=== PATIENT | male | born 1955 | race Caucasian/White ===

== ENCOUNTER 2018-11-29 12:33 | Inpatient (IN) ==
[2018-11-29] MEDS ORDERED: SODIUM CHLORIDE 0.9% 500 ML IV SCH (12:45)
[2018-11-29 12:58] LABS: Basophils # (auto) 0.03 K/uL (0-0.2); Basophils % (auto) 0.4 %; Eosinophils # (auto) 0.14 K/uL (0-0.5); Eosinophils % (auto) 1.7 %; Hemoglobin 12.6 g/dL (14.0-18.0); Immature Granulocytes # (auto) 0.06 K/uL (0.00-0.02); Immature Granulocytes % (auto) 0.7 %; Lymphocytes # (auto) 1.22 K/uL (1.2-3.4); Lymphocytes % (auto) 14.6 %; Mean Corpuscular Hgb Conc 34.1 g/dL (32-36); Mean Corpuscular Volume 88.9 fL (80-100); Mean Platelet Volume 9.2 fL (7.4-10.4); Monocytes % (auto) 7.2 %; Neutrophils # (auto) 6.29 K/uL (1.4-6.5); Neutrophils % (auto) 75.4 %; Platelet Count 220 K/uL (130-400); RDW Coefficient of Variation 14.2 % (11.5-14.5); RDW Standard Deviation 46.3 fL (36.4-46.3); Red Blood Count 4.16 M/uL (4.7-6.1); White Blood Count 8.34 K/uL (4.8-10.8)
[2018-11-29 13:05] LABS: iSTAT Creatinine 1.8 mg/dl (0.6-1.3); iSTAT Hemoglobin 12.9 g/dl (14.0-18.0); iSTAT Ionized Calcium 1.1 mmol/l (1.12-1.32); iSTAT Potassium 4.6 mEq/L (3.3-5.0)
[2018-11-29 13:09] LABS: INR 2.1 (0.9-1.1); Partial Thromboplastin Ratio 1.3; Partial Thromboplastin Time 35.9 Seconds (21.0-31.0); Prothrombin Time 20.1 Seconds (9.0-12.0)
[2018-11-29 13:13] LABS: Alanine Aminotransferase 29 U/L (12-78); Aspartate Aminotransferase 14 U/L (15-37); BUN Creatinine Ratio 17.2 (10-20); Blood Urea Nitrogen 31 mg/dl (7-18); Carbon Dioxide 30 mmol/L (21-32); Chloride 106 mmol/L (98-107); Est GFR (African American) 45.7; Est GFR (Non-African American) 39.4; Glucose 198 mg/dl (70-99); Magnesium 2.4 mg/dl (1.8-2.4); Potassium 4.8 mmol/L (3.5-5.1); Sodium 141 mmol/L (136-145)
--- NOTE | 2018-11-29 13:18 | CT Scan Report ---
CT head/brain wo con CLINICAL HISTORY: Acute change in mental status COMPARISON STUDY: 10/15/2014 TECHNIQUE: Axial CT of the brain is performed from the vertex to the skull base. IV contrast was not administered for this examination. A dose lowering technique was utilized adhering to the principles of ALARA. CT DOSE: 614.27 mGy.cm FINDINGS: No intra or extra-axial mass lesions are visualized. There is no CT evidence of acute cortical infarc tion. There is no evidence of midline shift. There is no acute hemorrhage. No calvarial fractures ar e visualized. There are mild white matter hypodensities likely on a small vessel basis. There is no evidence of pathologic ventricular dilatation. There is no evidence of acute sinusitis. Vertebral artery calcifications are again evident. IMPRESSION: No acute intracranial findings Electronically signed by: Prosper Gomez M.D. 11/29/2018 1:17 PM
[2018-11-29 13:24] LABS: Alkaline Phosphatase 159 U/L (45-117); Bilirubin,Total 0.4 mg/dl (0.2-1); Globulin 3.9 gm/dl (2.5-4.0); Phosphorus 3.1 mg/dl (2.5-4.9); Total Protein 7.9 gm/dl (6.4-8.2); Troponin I < 0.015 ng/ml (0-0.045)
--- NOTE | 2018-11-29 13:28 | XRay Report ---
XR chest 1V portable CLINICAL HISTORY: weakness dyspnea COMPARISON STUDY: 10/15/2014 FINDINGS: Mild stable cardiomegaly. Permanent bipolar cardiac pacemaker. Lungs are clear. IMPRESSION: No acute process. The above report was generated using voice recognition software. It may contain grammatical, syntax or spelling errors. Electronically signed by: Brennen Hillman M.D. 11/29/2018 1:27 PM
[2018-11-29 14:56] LABS: Appearance Urine Clear (Clear); Bilirubin Urine Negative (Negative); Blood Urine Negative (Negative); Color Urine Yellow; Glucose Urine UA Negative (Negative); Ketones Urine Negative (Negative); Leukocyte Esterase Urine Negative (Negative); Nitrite Urine Negative (Negative); Protein Urine Negative (Negative); Urobilinogen Urine Negative (Negative)
[2018-11-29 16:09] LABS: Amphetamines+Metham, Urine Neg (Neg); Barbiturates, Urine Neg (Neg); Benzodiazepine, Urine Neg (Neg); Cocaine, Urine Neg (Neg); MDMA (Ecstacy), Urine Pos (Neg); Methadone, Urine Neg (Neg); Opiate, Urine Neg (Neg); Phencyclidine, Urine Neg (Neg)
--- NOTE | 2018-11-29 16:35 | Emergency Department Note ---
Entered by Zenobia Motley acting as a scribe for History of Present Illness General Chief complaint: Altered Mental Status Time Seen by Provider: 11/29/18 12:31 Source: patient and EMS History of Present Illness Onset (ago): minute(s) (prior to arrival) Location: head Pain Consistency: + other (episode) Maximum Pain Intensity: 7 Quality: + other (unresponsive) Associated symptoms: + denies other symptoms (tongue biting, incontinence), + weakness (left hand) and + other (right shoulder pain, possible left side facial droop, speaking in incomplete sentences); no cough and no fever/chills (fever) The patient is a 63 male w/ PMHx CKD, [place], PE, CAD, HTN, CHF, diabetes, RYGB, anemia, hyperlipidemia, anxiety, depression, GERD, and heart artery stent who presents to the ED w/ CC of an episode of unresponsiveness starting prior to arrival. Per EMS, they were called out for an altered mental status. They state that upon arrival he was unresponsive except for an aggressive sternal rub. They report that hey gave him 50 of Fentanyl. They reports that he was complaining about right shoulder pain from 2 falls this past week and had a possible left si ded facial droop with a weak banquet director on the left. They note that the facial droop and weakness have since resolved. They state that they then gave Narcan after calling for [facility]. EMS notes that his BSG was 131. They note that he was speaking in incomplete sentences. The patient denies cough, fever, being on dialysis, a history of seizures, tongue biting, and incontinence. Home Medications Home Medications Medication Instructions Recorded Confirmed Type atorvastatin 80 mg PO DAILY 11/29/18 11/29/18 History baclofen 10 mg PO DIRECTED PRN 11/29/18 11/29/18 History bupropion HCl 300 mg PO QAM 11/29/18 11/29/18 History buspirone 15 mg PO BID 11/29/18 11/29/18 History dicyclomine 20 mg PO Q6H PRN 11/29/18 11/29/18 History escitalopram oxalate 0 mg PO UNKNOWN 11/29/18 11/29/18 History escitalopram oxalate 10 mg PO QAM 11/29/18 11/29/18 History furosemide 40 mg PO DIRECTED 11/29/18 11/29/18 History gabapentin 300 mg PO Q12 11/29/18 11/29/18 History glipizide 0 mg PO UNKNOWN 11/29/18 11/29/18 History isosorbide mononitrate 30 mg PO DAILY 11/29/18 11/29/18 History meclizine 25 mg PO TID PRN 11/29/18 11/29/18 History omeprazole 20 mg PO BID 11/29/18 11/29/18 History ranitidine HCl 150 mg PO Q12 11/29/18 11/29/18 History trazodone 200 mg PO HS 11/29/18 11/29/18 History warfarin 5 mg PO DIRECTED 11/29/18 11/29/18 History zolpidem 5 mg PO HS 11/29/18 11/29/18 History Allergies Allergy/AdvReac Type Severity Reaction Status Date / Time Calcium Channel Blockers AdvReac Mild COUGH Uncoded 11/29/18 14:05 Past Med/Surg History Medical History CHF (congestive heart failure) (Acute) HTN (hypertension) (Acute) GERD (gastroesophageal reflux disease) (Acute) Bradycardia (Acute) Orthostatic syncope (Acute) Peripheral edema (Acute) Supratherapeutic INR (Acute) Symptomatic bradycardia (Acute) Anemia Ankle fracture, left (Acute) pins/screws CKD (chronic kidney disease) Myocardial infarct 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 Knee cartilage, torn, left (Acute) Anemia Anxiety CAD (coronary artery disease) 2014 stress test showed ischemia and Rx was medical management CHF (congestive heart failure) 2015 echo nl EF Depression Diabetes HTN (hypertension) Hyperlipidemia Obesity Pulmonary embolism Surgical History Hx of gastric bypass sepsis postop H/O removal of testicle (Acute) H/O heart artery stent X5 Hx of cardiac pacemaker Family History Other Cancer Diabetes Heart disease Hypertension Lung disease Social History Preferred Language: Angolan marital status: Current Living Situation: Alone current occupational status: disabled Feels Safe at Home: Yes Smoking Status: Never smoker Review of Systems See HPI for pertinent positives & negatives. and A total of 10 systems reviewed and were otherwise negative Physical Exam Vital Signs Vital Signs - 24 hr 11/29/18 12:39 11/29/18 12:40 11/29/18 12:43 Temperature 36.5 C Temperature Source Oral Sepsis Action Taken by Nursing No Action Required Pulse Rate 82 73 Pulse Rate from SpO2 Sensor 81 73 Respiratory Rate 12 Respiratory Effort / Characteristics Non-Labored Spontaneous Respiratory Depth Normal Blood Pressure 138/111 H Blood Pressure Mean 120 Pulse Oximetry 92 100 Oxygen Delivery Method Room Air Room Air 11/29/18 12:50 11/29/18 13:00 11/29/18 13:11 Temperature Temperature Source Sepsis Action Taken by Nursing Pulse Rate 65 61 62 Pulse Rate from SpO2 Sensor 64 Respiratory Rate 13 Respiratory Effort / Characteristics Respiratory Depth Blood Pressure 123/74 114/78 Blood Pressure Mean 90 90 Pulse Oximetry 100 Oxygen Delivery Method 11/29/18 13:30 11/29/18 14:00 Temperature Temperature Source Sepsis Action Taken by Nursing Pulse Rate 60 63 Pulse Rate from SpO2 Sensor 60 63 Respiratory Rate 18 15 Respiratory Effort / Characteristics Respiratory Depth Blood Pressure Blood Pressure Mean Pulse Oximetry 100 100 Oxygen Delivery Method GENERAL: Responds to voice, follows commands, smells of urine. EYE EXAM: Normal conjunctiva. PERRL, no anisocoria and EOM's grossly intact w/o pain. OROPHARYNX: Moist mucus membranes. Poor dentition. NECK: Supple, no nuchal rigidity, no adenopathy, non-tender. no signs of meningismus. LUNGS: Clear to auscultation. Normal chest wall mechanics. HEART: NSR, no MRG. ABDOMEN: Abdomen soft, non-tender, normo-active bowel sounds, no masses, no rebound or guarding. Multiple well healed scars over the abdomen. BACK: No CVA TTP. SKIN: No rashes and no bruising. UPPER EXTREMITIES: Upper extremities are grossly normal. LOWER EXTREMITIES: 1-2+ lower extremity edema. Signs of chronic venous stasis changes bilaterally. No calf pain. NEURO EXAM: A&O x3, cranial nerves II-XII grossly intact, normal speech, moves all 4 extremities on command w/o issue. No sensory deficits. Course 1235: The patient was evaluated in room A1. A complete history and physical exam was performed. 1325: I reevaluated the patient and updated him on his test results thus far. 1519: I discussed the patient's case with DANIEL Fox Hospitalist. She will evaluate the patient for further management. 1527: I reevaluated the patient and updated him on his test results. I discussed the treatment plan with him. He verbally agrees and understands. Consultations Consultation #1: I discussed the patient's case with DANIEL Fox Hospitalist. She will evaluate the patient for further management. Time: 15:19 Administered Medications Narcan .4 mg IV x 1 - ordered pre-hospital Medical Decision Making Differential Diagnosis Differential Diagnosis includes but is not limited to dehydration, stroke, anemia, hypoglycemia, hyponatremia, hypernatremia, urinary tract infection, pneumonia, bronchitis, sepsis, gastroenteritis, additional abdominal pathology, metabolic abnormalities and infections. Medical Records Attestation: I reviewed the patient's medical records. Home Medications Current Medication List: was personally reviewed by me Laboratory Data Attestation: I reviewed the patient's lab results. Result diagrams: 11/29/18 12:45 11/29/18 12:45 Lab Results 11/29/18 11/29/18 11/29/18 Range/Units 12:40 12:45 12:45 WBC 8.34 (4.8-10.8) K/uL RBC 4.16 L (4.7-6.1) M/uL Hgb 12.6 L (14.0-18.0) g/dL POC Hgb (14.0-18.0) g/dl Hct 37.0 L (42-52) % POC Hct (42-52) % MCV 88.9 (80-100) fL MCH 30.3 (25-34) pg MCHC 34.1 (32-36) g/dL RDW Std Deviation 46.3 (36.4-46.3) fL RDW Coeff of Mounika 14.2 (11.5-14.5) % Plt Count 220 (130-400) K/uL MPV 9.2 (7.4-10.4) fL Immature Gran % (Auto) 0.7 % Neut % (Auto) 75.4 % Lymph % (Auto) 14.6 % [place] % (Auto) 7.2 % Eos % (Auto) 1.7 % Baso % (Auto) 0.4 % Immature Gran # (Auto) 0.06 H (0.00-0.02) K/uL Neut # (Auto) 6.29 (1.4-6.5) K/uL Lymph # (Auto) 1.22 (1.2-3.4) K/uL [place] # (Auto) 0.60 H (0.11-0.59) K/uL Eos # (Auto) 0.14 (0-0.5) K/uL Baso # (Auto) 0.03 (0-0.2) K/uL PT (9.0-12.0) Seconds INR (0.9-1.1) APTT (21.0-31.0) Seconds PTT Ratio POC Sodium (135-144) mEq/L Sodium 141 (136-145) mmol/L POC Potassium (3.3-5.0) mEq/L Potassium 4.8 (3.5-5.1) mmol/L POC Chloride (101-112) mEq/L Chloride 106 (98-107) mmol/L Carbon Dioxide 30 (21-32) mmol/L POC Total CO2 (24-31) mEq/l Anion Gap 5.0 (3-11) POC Anion Gap (16-25) mmol/L POC BUN (7-18) mg/dl BUN 31 H (7-18) mg/dl Creatinine 1.78 H (0.6-1.4) mg/dl POC Creatinine (0.6-1.3) mg/dl Est Cr Clr Drug Dosing Not Reportable Est GFR ( Amer) 45.7 Est GFR (Non-Af Amer) 39.4 BUN/Creatinine Ratio 17.2 (10-20) Glucose 198 H (70-99) mg/dl POC Glucose 183 H (70-99) POC Glucose (other) (70-99) mg/dl Lactate (0.4-2.0) mmol/L Calcium 9.0 (8.5-10.1) mg/dl POC Ioniz Calcium Heath (1.12-1.32) mmol/l Phosphorus 3.1 (2.5-4.9) mg/dl Magnesium 2.4 (1.8-2.4) mg/dl Total Bilirubin 0.4 (0.2-1) mg/dl AST 14 L (15-37) U/L ALT 29 (12-78) U/L Alkaline Phosphatase 159 H (45-117) U/L Troponin I < 0.015 (0-0.045) ng/ml Total Protein 7.9 (6.4-8.2) gm/dl Albumin 4.0 (3.4-5.0) gm/dl Globulin 3.9 (2.5-4.0) gm/dl Albumin/Globulin Ratio 1.0 (0.9-2) TSH 1.870 (0.300-4.500) uIu/ml Urine Color Urine Appearance (Clear) Urine pH (4.5-7.5) Ur Specific Center (1.000-1.030) Urine Protein (Negative) Urine Glucose (UA) (Negative) Urine Ketones (Negative) Urine Blood (Negative) Urine Nitrite (Negative) Urine Bilirubin (Negative) Urine Urobilinogen (Negative) Ur Leukocyte Esterase (Negative) Urine Opiates Screen (Neg) Ur Methadone, Qual (Neg) Urine Barbiturates (Neg) Ur Phencyclidine (PCP) (Neg) U Amphetamin/Meth Scrn (Neg) MDMA (Ecstasy) Screen (Neg) U Benzodiazepines Scrn (Neg) Ur Cocaine Metabolite (Neg) U Marijuana (THC) Screen (Neg) 11/29/18 11/29/18 11/29/18 Range/Units 12:45 12:52 13:30 WBC (4.8-10.8) K/uL RBC (4.7-6.1) M/uL Hgb (14.0-18.0) g/dL POC Hgb 12.9 L (14.0-18.0) g/dl Hct (42-52) % POC Hct 38 L (42-52) % MCV (80-100) fL MCH (25-34) pg MCHC (32-36) g/dL RDW Std Deviation (36.4-46.3) fL RDW Coeff of Mounika (11.5-14.5) % Plt Count (130-400) K/uL MPV (7.4-10.4) fL Immature Gran % (Auto) % Neut % (Auto) % Lymph % (Auto) % [place] % (Auto) % Eos % (Auto) % Baso % (Auto) % Immature Gran # (Auto) (0.00-0.02) K/uL Neut # (Auto) (1.4-6.5) K/uL Lymph # (Auto) (1.2-3.4) K/uL [place] # (Auto) (0.11-0.59) K/uL Eos # (Auto) (0-0.5) K/uL Baso # (Auto) (0-0.2) K/uL PT 20.1 H (9.0-12.0) Seconds INR 2.1 H (0.9-1.1) APTT 35.9 H (21.0-31.0) Seconds PTT Ratio 1.3 POC Sodium 143 (135-144) mEq/L Sodium (136-145) mmol/L POC Potassium 4.6 (3.3-5.0) mEq/L Potassium (3.5-5.1) mmol/L POC Chloride 100 L (101-112) mEq/L Chloride (98-107) mmol/L Carbon Dioxide (21-32) mmol/L POC Total CO2 32 H (24-31) mEq/l Anion Gap (3-11) POC Anion Gap 16.0 (16-25) mmol/L POC BUN 32 H (7-18) mg/dl BUN (7-18) mg/dl Creatinine (0.6-1.4) mg/dl POC Creatinine 1.8 H (0.6-1.3) mg/dl Est Cr Clr Drug Dosing Est GFR ( Amer) Est GFR (Non-Af Amer) BUN/Creatinine Ratio (10-20) Glucose (70-99) mg/dl POC Glucose (70-99) POC Glucose (other) 200 H (70-99) mg/dl Lactate 1.7 (0.4-2.0) mmol/L Calcium (8.5-10.1) mg/dl POC Ioniz Calcium Heath 1.10 L (1.12-1.32) mmol/l Phosphorus (2.5-4.9) mg/dl Magnesium (1.8-2.4) mg/dl Total Bilirubin (0.2-1) mg/dl AST (15-37) U/L ALT (12-78) U/L Alkaline Phosphatase (45-117) U/L Troponin I (0-0.045) ng/ml Total Protein (6.4-8.2) gm/dl Albumin (3.4-5.0) gm/dl Globulin (2.5-4.0) gm/dl Albumin/Globulin Ratio (0.9-2) TSH (0.300-4.500) uIu/ml Urine Color Urine Appearance (Clear) Urine pH (4.5-7.5) Ur Specific Center (1.000-1.030) Urine Protein (Negative) Urine Glucose (UA) (Negative) Urine Ketones (Negative) Urine Blood (Negative) Urine Nitrite (Negative) Urine Bilirubin (Negative) Urine Urobilinogen (Negative) Ur Leukocyte Esterase (Negative) Urine Opiates Screen (Neg) Ur Methadone, Qual (Neg) Urine Barbiturates (Neg) Ur Phencyclidine (PCP) (Neg) U Amphetamin/Meth Scrn (Neg) MDMA (Ecstasy) Screen (Neg) U Benzodiazepines Scrn (Neg) Ur Cocaine Metabolite (Neg) U Marijuana (THC) Screen (Neg) 11/29/18 11/29/18 Range/Units 14:35 14:35 WBC (4.8-10.8) K/uL RBC (4.7-6.1) M/uL Hgb (14.0-18.0) g/dL POC Hgb (14.0-18.0) g/dl Hct (42-52) % POC Hct (42-52) % MCV (80-100) fL MCH (25-34) pg MCHC (32-36) g/dL RDW Std Deviation (36.4-46.3) fL RDW Coeff of Mounika (11.5-14.5) % Plt Count (130-400) K/uL MPV (7.4-10.4) fL Immature Gran % (Auto) % Neut % (Auto) % Lymph % (Auto) % [place] % (Auto) % Eos % (Auto) % Baso % (Auto) % Immature Gran # (Auto) (0.00-0.02) K/uL Neut # (Auto) (1.4-6.5) K/uL Lymph # (Auto) (1.2-3.4) K/uL [place] # (Auto) (0.11-0.59) K/uL Eos # (Auto) (0-0.5) K/uL Baso # (Auto) (0-0.2) K/uL PT (9.0-12.0) Seconds INR (0.9-1.1) APTT (21.0-31.0) Seconds PTT Ratio POC Sodium (135-144) mEq/L Sodium (136-145) mmol/L POC Potassium (3.3-5.0) mEq/L Potassium (3.5-5.1) mmol/L POC Chloride (101-112) mEq/L Chloride (98-107) mmol/L Carbon Dioxide (21-32) mmol/L POC Total CO2 (24-31) mEq/l Anion Gap (3-11) POC Anion Gap (16-25) mmol/L POC BUN (7-18) mg/dl BUN (7-18) mg/dl Creatinine (0.6-1.4) mg/dl POC Creatinine (0.6-1.3) mg/dl Est Cr Clr Drug Dosing Est GFR ( Amer) Est GFR (Non-Af Amer) BUN/Creatinine Ratio (10-20) Glucose (70-99) mg/dl POC Glucose (70-99) POC Glucose (other) (70-99) mg/dl Lactate (0.4-2.0) mmol/L Calcium (8.5-10.1) mg/dl POC Ioniz Calcium Heath (1.12-1.32) mmol/l Phosphorus (2.5-4.9) mg/dl Magnesium (1.8-2.4) mg/dl Total Bilirubin (0.2-1) mg/dl AST (15-37) U/L ALT (12-78) U/L Alkaline Phosphatase (45-117) U/L Troponin I (0-0.045) ng/ml Total Protein (6.4-8.2) gm/dl Albumin (3.4-5.0) gm/dl Globulin (2.5-4.0) gm/dl Albumin/Globulin Ratio (0.9-2) TSH (0.300-4.500) uIu/ml Urine Color Yellow Urine Appearance Clear (Clear) Urine pH 5.0 (4.5-7.5) Ur Specific Center 1.010 (1.000-1.030) Urine Protein Negative (Negative) Urine Glucose (UA) Negative (Negative) Urine Ketones Negative (Negative) Urine Blood Negative (Negative) Urine Nitrite Negative (Negative) Urine Bilirubin Negative (Negative) Urine Urobilinogen Negative (Negative) Ur Leukocyte Esterase Negative (Negative) Urine Opiates Screen Neg (Neg) Ur Methadone, Qual Neg (Neg) Urine Barbiturates Neg (Neg) Ur Phencyclidine (PCP) Neg (Neg) U Amphetamin/Meth Scrn Neg (Neg) MDMA (Ecstasy) Screen Pos H (Neg) U Benzodiazepines Scrn Neg (Neg) Ur Cocaine Metabolite Neg (Neg) U Marijuana (THC) Screen Neg (Neg) Imaging Data Radiologist's Impression: Radiology results as stated below per my review and the radiologist's interpretation: XR chest 1V portable CLINICAL HISTORY: weakness dyspnea COMPARISON STUDY: 10/15/2014 FINDINGS: Mild stable cardiomegaly. Permanent bipolar cardiac pacemaker. Lungs are clear. IMPRESSION: No acute process. The above report was generated using voice recognition software. It may contain grammatical, syntax or spelling errors. Electronically signed by: Brennen Hillman M.D. 11/29/2018 1:[address] head/brain wo con CLINICAL HISTORY: Acute change in mental status COMPARISON STUDY: 10/15/2014 TECHNIQUE: Axial CT of the brain is performed from the vertex to the skull base. IV contrast was not administered for this examination. A dose lowering technique was utilized adhering to the principles of ALARA. CT DOSE: 614.27 mGy.cm FINDINGS: No intra or extra-axial mass lesions are visualized. There is no CT evidence of acute cortical infarction. There is no evidence of midline shift. There is no acute hemorrhage. No calvarial fractures are visualized. There are mild white matter hypodensities likely on a small vessel basis. There is no evidence of pathologic ventricular dilatation. There is no evidence of acute sinusitis. Vertebral artery calcifications are again evident. IMPRESSION: No acute intracranial findings Electronically signed by: Prosper Gomez M.D. 11/29/2018 1:17 PM ECG Data Attestation: I personally reviewed and interpreted this ECG as follows: Indication: altered mental status Rate (beats per minute): 67 Rhythm: other (atrially paced) Findings: + other (wide QRS), + T-wave inversion (inferiroly) and + left axis deviation Comparison ECG Date: from () Change: the following changes noted (pacemaker is new and TWI inferiorly is old) Blood Pressure Blood Pressure Findings: Normal blood pressure Blood Pressure Disposition: did not require urgent referral MDM Narrative The patient is a 63 male w/ PMHx CKD, [place], PE, CAD, HTN, CHF, diabetes, RYGB, anemia, hyperlipidemia, anxiety, depression, GERD, and heart artery stent who presents to the ED w/ CC of an episode of unresponsiveness starting prior to arrival. Patient was seen and evaluated the bedside. The patient reportedly was coming in with concern for questionable unresponsiveness. The patient was complaining some right-sided shoulder pain apparent was only awake to sternal rub. EMS had given the patient fentanyl so I ordered that they give the patient Narcan. Upon presentation here the patient has stable vitals is protecting his airway has a GCS of 14 opens his eyes to voice and follows commands. No obvious focal deficit. The patient did have blood work completed along with CT of the brain. Patient's blood work shows some CKD which is fairly chronic and stable. White blood cell count is within normal limits. Patient does have some chronic but stable anemia. Patient is therapeutic on his INR given his prior history of PE for which she is on Coumadin. Troponin is not detectable. TSH is normal. Urinalysis negative for infection. Given the patient's episode of unrespo nsiveness and given his multiple medical problems believe he would benefit from observation telemetry. Impression & Plan Alteration of consciousness Critical Care Time I have personally spent greater than 40 minutes of critical care time in direct management of this patient. This includes bedside care, interpretation of diagnostic studies, and testing, discussion with consultants, patient, and f amily members, and other require inpatient management activities. This 40 minutes is in excess of all separately billable procedures. Critical Care Time: Yes Total Critical Care Time: 40 Discharge Plan Visit Data Chief Complaint: Altered Mental Status ED Provider: Munir Duarte Discharge Problem: Alteration of consciousness Patient Disposition: Being Evaluated by Hospitalist Forms Stand Alone Forms: My [facility] [email or web address] Prescriptions Prescriptions: No Action furosemide 40 mg tablet 40 mg PO DIRECTED RF: 0 trazodone 100 mg tablet 200 mg PO HS RF: 0 dicyclomine 20 mg tablet 20 mg PO Q6H PRN (Reason: Cramps) RF: 0 meclizine 25 mg tablet 25 mg PO TID PRN (Reason: Dizziness) RF: 0 baclofen 10 mg tablet 10 mg PO DIRECTED PRN (Reason: Pain) RF: 0 glipizide 2.5 mg tablet extended release 24hr PO UNKNOWN RF: 0 ranitidine HCl 150 mg tablet 150 mg PO Q12 RF: 0 warfarin 5 mg tablet 5 mg PO DIRECTED RF: 0 gabapentin 300 mg capsule 300 mg PO Q12 RF: 0 omeprazole 20 mg capsule,delayed release(DR/EC) 20 mg PO BID RF: 0 zolpidem 5 mg tablet 5 mg PO HS RF: 0 buspirone 15 mg tablet 15 mg PO BID RF: 0 escitalopram oxalate 10 mg tablet 10 mg PO QAM RF: 0 bupropion HCl 300 mg tablet extended release 24 hr 300 mg PO QAM RF: 0 escitalopram oxalate 5 mg tablet PO UNKNOWN RF: 0 atorvastatin 80 mg Tablet 80 mg PO DAILY RF: 0 isosorbide mononitrate 30 mg Tablet Extended Release 24 Hr 30 mg PO DAILY RF: 0 Referrals Referrals: Barron Nguyen V., DO [Primary Care Provider] - The scribe's documentation has been prepared under my direction and personally reviewed by me in its entirety. I confirm that the note above accurately reflects all work, treatment, procedures, and medical decision making performed by me.
--- NOTE | 2018-11-29 17:54 | History & Physical Report ---
Date of Service November 29, 2018 Assessment & Plan (1) Altered mental status: -Admit to telemetry -EMS was called to patient's home for lethargy/altered mental status. When EMS arrived, patient was lethargic however arousable and was complaining of shoulder pain. He was subsequently given IV fentanyl for the pain. There was also reported possible left sided facial droop with a weak lye machine operator on the left. EMS noted that the facial droop and weakness resolved. Patient was given Narcan after EMS called for [facility]. -History remains limited from the patient -Differential diagnosis includes: Polypharmacy vs. CVA vs. seizure -No signs of infection -For now, will hold all potentially sedating medications (baclofen, bupropion, buspirone, escitalopram, gabapentin, oxycodone, trazodone, zolpidem); noted that baclofen was recently started -Head CT negative -Unable to obtain brain MRI to evaluate for CVA -Neurochecks -Neuro consult for input regarding further work-up for CVA /seizure (2) Neck pain: -Check cervical spine x-ray (3) DM type 2 (diabetes mellitus, type 2): -Hgb A1c 7.1 10/2018 -Unable to obtain accurate med rec from patient at this time -Discussed with patient's pharmacy, he has not had his glipizide filled in over 1 year -will place on NovoLog per protocol while hospitalized (4) CKD (chronic kidney disease), stage IV: - baseline creat runs in the low twos - creat noted to be 1.7 today - continue to monitor, avoid nephrotoxic agents when able - Noted the patient recently had RUE fistula placed (5) CAD (coronary artery disease): -Appears stable, patient does report chest pain however this seems to be musculoskeletal in nature -Initial troponin negative, will continue to cycle -EKG unchanged from EKG 02/2018 -Continue aspirin, statin, nitrate (6) Sinus node dysfunction: (7) Pacemaker: -Pacer interrogation to evaluate for arrhythmia due to episode of altered mental status (8) Personal history of DVT (deep vein thrombosis): (9) Pulmonary embolism: -Anticoagulated on Coumadin, INR 2.1 -Continue Coumadin, dose according to INR (10) Hypertension: -BP controlled, continue isosorbide (11) Diastolic CHF, chronic: -Appears euvolemic, continue home dose of furosemide (12) GERD (gastroesophageal reflux disease): -Continue H2 evelyn and PPI (13) Depression: -Holding medications as above (14) Anemia due to chronic kidney disease: -Hgb at baseline (15) DVT prophylaxis: -Anticoagulated on Coumadin with a therapeutic INR History of Present Illness Chief Complaint: Altered mental status Primary Care Provider: Barron Nguyen DO 63-year-old male who presents the ED with altered mental status. History is very limited from the patient, there is no family present in the room, and family/friends were unable to be reached by phone. History is obtained from ED documentation and patient's outpatient chart. EMS was called to patient's home for lethargy/altered mental status. Patient reports he lives with his son however he is unsure if he was the one that called EMS. When EMS arrived, patient was lethargic however arousable and was complaining of shoulder pain. He was subsequently given IV fentanyl for the pain. There was also reported possible left sided facial droop with a weak lye machine operator on the left. They note that the facial droop and weakness have since resolved. Patient was given Narcan after calling for [employer]. After review of outpatient chart, patient was recently given baclofen for right shoulder pain. It is unknown if patient has been taking medication as prescribed. When patient was asked questions during exam, he frequently responded with " my neck hurts", "my shoulder hurts", " I just do not feel well", " I do not remember". In the ED, CT is negative for acute findings, patient is hemodynamically stable, labs are unremarkable. Allergies Allergy/AdvReac Type Severity Reaction Status Date / Time Calcium Channel Blockers AdvReac Mild COUGH Uncoded 11/29/18 14:05 Home Medications Home Medications Medication Instructions Recorded Confirmed Type aspirin 81 mg PO DAILY 11/29/18 11/29/18 History atorvastatin 80 mg PO DAILY 11/29/18 11/29/18 History baclofen 10 mg PO Q8H PRN 11/29/18 11/29/18 History bupropion HCl 300 mg PO QAM 11/29/18 11/29/18 History buspirone 15 mg PO BID 11/29/18 11/29/18 History dicyclomine 20 mg PO Q6H PRN 11/29/18 11/29/18 History escitalopram oxalate 10 mg PO QAM 11/29/18 11/29/18 History furosemide 80 mg PO QDD 11/29/18 11/29/18 History furosemide 120 mg PO DAILY 11/29/18 11/29/18 History gabapentin 300 mg PO Q12 11/29/18 11/29/18 History glipizide 2.5 mg PO DAILY 11/29/18 11/29/18 History iron,carbonyl-vitamin C [Vitron-C] 1 tab PO BID 11/29/18 11/29/18 History isosorbide mononitrate 30 mg PO DAILY 11/29/18 11/29/18 History magnesium oxide 400 mg PO BID 11/29/18 11/29/18 History meclizine 25 mg PO TID PRN 11/29/18 11/29/18 History omeprazole 20 mg PO BID 11/29/18 11/29/18 History oxycodone 10 mg PO Q6H PRN 11/29/18 11/29/18 History ranitidine HCl 150 mg PO Q12 11/29/18 11/29/18 History trazodone 200 mg PO HS 11/29/18 11/29/18 History warfarin 5 mg PO DAILY 11/29/18 11/29/18 History zolpidem 5 mg PO HS 11/29/18 11/29/18 History Past Med/Surg History Medical History Anemia due to chronic kidney disease (Chronic) Chronic anticoagulation (Chronic) Depression (Chronic) Pacemaker (Chronic) Marilou's gangrene of scrotum (Resolved) GERD (gastroesophageal reflux disease) (Chronic) Diastolic CHF, chronic (Chronic) Echo 2017 -EF 57%, grade 2 diastolic dysfunction Hypertension (Chronic) Pulmonary embolism (Chronic) Personal history of DVT (deep vein thrombosis) (Chronic) Pacemaker (Chronic) NSVT (nonsustained ventricular tachycardia) (Chronic) Sinus node dysfunction (Chronic) CAD (coronary artery disease) (Chronic) 08/2009-BMS to RCA, BMS to diagonal, balloon angioplasty to obtuse circumflex 2014-cardiac cath showing nonobstructive disease, mild in-stent restenosis RCA -medical management advised CKD (chronic kidney disease), stage IV (Chronic) DM type 2 (diabetes mellitus, type 2) (Chronic) Ankle fracture, left (Chronic) pins/screws Surgical History H/O umbilical hernia repair (Chronic) History of incisional hernia repair (Chronic) x4 Hx of cholecystectomy (Chronic) History of orchiectomy (Chronic) S/P IVC filter (Chronic) Hx of gastric bypass (Chronic) Family History Mother Diabetes Sister Heart disease Social History Preferred Language: Dominican Communication Ability: Impaired Communication Ability Comment: Patient slow to respond to questions. 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 Beliefs That Will Affect Care: None marital status: Current Living Situation: Alone current occupational status: disabled Feels Safe at Home: No Is there a partner from a previous relationship who is making you feel unsafe now?: No Any Concerns about Your Family Situation: No Would You Like to Speak to Someone About Your Situation: No Smoking Status: Never smoker Do You Dip or Chew Tobacco: No Second Hand Exposure: No Tobacco Cessation Education Requested by Patient: No Hx Alcohol Use: Yes ("now and then") Alcohol type: hard liquor Hx Substance Use: No Review of Systems Review of Systems: Unobtainable due to cognitive status Physical Exam Constitutional: WD/WN, vitals as above Eyes: PERRL, conjunctivae normal, anicteric sclerae ENMT: external ear and nose normal, oropharynx normal Mouth: + edentulous Respiratory: normal respiratory effort, lungs clear to auscultation Cardiovascular: Rate/Rhythm: regular rate and regular rhythm Vessels: n ormal peripheral pulses Extremities: + edema (+1-2 BLE, L > R) Gastrointestinal (Abdomen): normal bowel sounds, soft, nontender, no hepatosplenomegaly Musculoskeletal: Extremities: + upper extremity abnormal to inspection (Unable to lift arms secondary to shoulder pain) Bilateral and + lower leg abnormality (Weakness, strength 3-4/5 BLLE) Bilateral; no cyanosis and no clubbing Skin: no rashes, warm and dry Chronic venous changes BLE Neurologic: PERRL, EOMI, accommodation nl, no face palsy, no dysarthria moves all extremities, awake and + confused Speech / Cognition: normal speech Does not follow commands well to adequately perform a neuro exam Psychiatric: Orientation: alert, oriented to person and oriented to place; + not oriented to time Affect: + tearful affect Insight: + limited insight Results & Data Vital Signs (Past 12 Hours) Vital Signs Temp Pulse Pulse Resp BP BP Pulse Ox 11/29/18 17:16 21 132/73 97 11/29/18 17:10 37.0 C 62 20 132/73 98 11/29/18 17:01 22 144/85 H 99 11/29/18 17:00 22 100 11/29/18 16:31 66 17 141/76 H 100 11/29/18 16:30 69 12 98 11/29/18 16:01 63 22 152/84 H 11/29/18 16:00 64 21 11/29/18 15:31 63 14 134/71 100 11/29/18 15:30 61 16 100 11/29/18 15:01 60 15 144/77 H 100 11/29/18 15:00 60 13 100 11/29/18 14:31 60 14 146/73 H 100 11/29/18 14:30 61 14 100 11/29/18 14:19 61 13 146/87 H 100 11/29/18 14:00 63 15 100 11/29/18 13:30 60 18 100 11/29/18 13:11 62 13 114/78 11/29/18 13:00 61 11/29/18 12:50 65 123/74 100 11/29/18 12:40 36.5 C 73 12 138/111 H 100 11/29/18 12:39 82 92 Laboratory Results Laboratory Last Values WBC 8.34 K/uL (4.8-10.8) 11/29/18 12:45 RBC 4.16 M/uL (4.7-6.1) L 11/29/18 12:45 Hgb 12.6 g/dL (14.0-18.0) L 11/29/18 12:45 POC Hgb 12.9 g/dl (14.0-18.0) L 11/29/18 12:52 Hct 37.0 % (42-52) L 11/29/18 12:45 POC Hct 38 % (42-52) L 11/29/18 12:52 MCV 88.9 fL (80-100) 11/29/18 12:45 MCH 30.3 pg (25-34) 11/29/18 12:45 MCHC 34.1 g/dL (32-36) 11/29/18 12:45 RDW Std Deviation 46.3 fL (36.4-46.3) 11/29/18 12:45 RDW Coeff of Mounika 14.2 % (11.5-14.5) 11/29/18 12:45 Plt Count 220 K/uL (130-400) 11/29/18 12:45 MPV 9.2 fL (7.4-10.4) 11/29/18 12:45 Immature Gran % (Auto) 0.7 % 11/29/18 12:45 Neut % (Auto) 75.4 % 11/29/18 12:45 Lymph % (Auto) 14.6 % 11/29/18 12:45 George % (Auto) 7.2 % 11/29/18 12:45 Eos % (Auto) 1.7 % 11/29/18 12:45 Baso % (Auto) 0.4 % 11/29/18 12:45 Immature Gran # (Auto) 0.06 K/uL (0.00-0.02) H 11/29/18 12:45 Neut # (Auto) 6.29 K/uL (1.4-6.5) 11/29/18 12:45 Lymph # (Auto) 1.22 K/uL (1.2-3.4) 11/29/18 12:45 George # (Auto) 0.60 K/uL (0.11-0.59) H 11/29/18 12:45 Eos # (Auto) 0.14 K/uL (0-0.5) 11/29/18 12:45 Baso # (Auto) 0.03 K/uL (0-0.2) 11/29/18 12:45 PT 20.1 Seconds (9.0-12.0) H 11/29/18 12:45 INR 2.1 (0.9-1.1) H 11/29/18 12:45 APTT 35.9 Seconds (21.0-31.0) H 11/29/18 12:45 PTT Ratio 1.3 11/29/18 12:45 POC Sodium 143 mEq/L (135-144) 11/29/18 12:52 Sodium 141 mmol/L (136-145) 11/29/18 12:45 POC Potassium 4.6 mEq/L (3.3-5.0) 11/29/18 12:52 Potassium 4.8 mmol/L (3.5-5.1) 11/29/18 12:45 POC Chloride 100 mEq/L (101-112) L 11/29/18 12:52 Chloride 106 mmol/L (98-107) 11/29/18 12:45 Carbon Dioxide 30 mmol/L (21-32) 11/29/18 12:45 POC Total CO2 32 mEq/l (24-31) H 11/29/18 12:52 Anion Gap 5.0 (3-11) 11/29/18 12:45 POC Anion Gap 16.0 mmol/L (16-25) 11/29/18 12:52 POC BUN 32 mg/dl (7-18) H 11/29/18 12:52 BUN 31 mg/dl (7-18) H 11/29/18 12:45 Creatinine 1.78 mg/dl (0.6-1.4) H 11/29/18 12:45 POC Creatinine 1.8 mg/dl (0.6-1.3) H 11/29/18 12:52 Est Cr Clr Drug Dosing Not Reportable 11/29/18 12:45 Est GFR ( Amer) 45.7 11/29/18 12:45 Est GFR (Non-Af Amer) 39.4 11/29/18 12:45 BUN/Creatinine Ratio 17.2 (10-20) 11/29/18 12:45 Glucose 198 mg/dl (70-99) H 11/29/18 12:45 POC Glucose 183 (70-99) H 11/29/18 12:40 POC Glucose (other) 200 mg/dl (70-99) H 11/29/18 12:52 Lactate 1.7 mmol/L (0.4-2.0) 11/29/18 13:30 Calcium 9.0 mg/dl (8.5-10.1) 11/29/18 12:45 POC Ioniz Calcium [place] 1.10 mmol/l (1.12-1.32) L 11/29/18 12:52 Phosphorus 3.1 mg/dl (2.5-4.9) 11/29/18 12:45 Magnesium 2.4 mg/dl (1.8-2.4) 11/29/18 12:45 Total Bilirubin 0.4 mg/dl (0.2-1) 11/29/18 12:45 AST 14 U/L (15-37) L 11/29/18 12:45 ALT 29 U/L (12-78) 11/29/18 12:45 Alkaline Phosphatase 159 U/L (45-117) H 11/29/18 12:45 Troponin I < 0.015 ng/ml (0-0.045) 11/29/18 18:44 Total Protein 7.9 gm/dl (6.4-8.2) 11/29/18 12:45 Albumin 4.0 gm/dl (3.4-5.0) 11/29/18 12:45 Globulin 3.9 gm/dl (2.5-4.0) 11/29/18 12:45 Albumin/Globulin Ratio 1.0 (0.9-2) 11/29/18 12:45 TSH 1.870 uIu/ml (0.300-4.500) 11/29/18 12:45 Urine Color Yellow 11/29/18 14:35 Urine Appearance Clear (Clear) 11/29/18 14:35 Urine pH 5.0 (4.5-7.5) 11/29/18 14:35 Ur Specific [place] 1.010 (1.000-1.030) 11/29/18 14:35 Urine Protein Negative (Negative) 11/29/18 14:35 Urine Glucose (UA) Negative (Negative) 11/29/18 14:35 Urine Ketones Negative (Negative) 11/29/18 14:35 Urine Blood Negative (Negative) 11/29/18 14:35 Urine Nitrite Negative (Negative) 11/29/18 14:35 Urine Bilirubin Negative (Negative) 11/29/18 14:35 Urine Urobilinogen Negative (Negative) 11/29/18 14:35 Ur Leukocyte Esterase Negative (Negative) 11/29/18 14:35 Urine Opiates Screen Neg (Neg) 11/29/18 14:35 Ur Methadone, Qual Neg (Neg) 11/29/18 14:35 Urine Barbiturates Neg (Neg) 11/29/18 14:35 Ur Phencyclidine (PCP) Neg (Neg) 11/29/18 14:35 U Amphetamin/Meth Scrn Neg (Neg) 11/29/18 14:35 MDMA (Ecstasy) Screen Pos (Neg) H 11/29/18 14:35 U Benzodiazepines Scrn Neg (Neg) 11/29/18 14:35 Ur Cocaine Metabolite Neg (Neg) 11/29/18 14:35 U Marijuana (THC) Screen Neg (Neg) 11/29/18 14:[address] IMPRESSION: No acute intracranial findings CXR IMPRESSION: No acute process. Code Status & VTE Plan Code Status Unable to discuss with patient secondary to mental status, unable to reach patient's son by phone; therefore patient will be made a full code. VTE Prophylaxis Plan VTE Prophylaxis will be ordered: Yes Supervising Physician Co-Signing Physician Notes I have seen and examined the patient and have discussed the case with the provider above. I agree with the assessment and plan as stated with the following exceptions. Mr. Giron is a very poor historian who keeps changing his story. He most likely took two oxycodone in addition to Baclofen which is a new medication as of a couple of weeks ago last night and became altered. He also takes Ambien 5mg every night and other meds as above. The patient reports his son trying to wake him up without success this am, and the patient states he could feel him but couldn't speak to communicate with him. He then came to the ER via EMS and is now A&Ox 3. He interstingly was fine the entire exam and started having some "shaking" in his arms and legs. There was also no issue with his breathing or speaking ability, however, when I went to auscultate his lungs, he was only able to take a stacatto breath in and out and seemed to try to be making things seem somewhat worse than they were. He told me that he was unhappy with just taking plain Tylenol, and states that his outpatient physicians cut him off of oxycodone. PDMP review shows that he just filled 120 pills on 11/12. Pt states that he is out of these meds. Suspect polypharmacy causing AMS this am. Will restart his oxycodone now to help with shoulder pain present since his fall two weeks ago. Physical exam revealed a nonfocal neuro exam, lungs that were clear to auscultation with limited exam per above breathing pattern, normal heart exam and no peripheral edema. Cont plan of holding meds as above, restart oxy, and continue to add meds back slowly. Would stop Baclofen as that was the recent change that might have caused a reaction. Appreciate neuro input. PT/OT flavio in am. Pt reports ambulating with a walker, however, he is unable to sit up in bed unassisted. Lon, DO
[2018-11-29] MEDS: ACETAMINOPHEN 325 MG TAB PO PRN (18:54)
[2018-11-29] MEDS ORDERED: DEXTROSE 50% 50 ML SYRINGE IV PRN (20:23)
[2018-11-29] MEDS ORDERED: GLUCOSE 40% GEL 15 GM TUBE PO PRN (20:23)
[2018-11-29] MEDS ORDERED: GLUCAGON FOR INJ 1 MG VIAL SQ PRN (20:23)
[2018-11-29] MEDS ORDERED: CARBOHYDRATES FOR HYPOGLYCEMIA PO PRN (20:23)
[2018-11-29] MEDS ORDERED: GLUCOSE 10 TABS/TUBE PO PRN (20:23)
[2018-11-29] MEDS: MAGNESIUM OXIDE 400 MG TAB PO SCH (20:47)
[2018-11-29] MEDS: PANTOprazole 40 MG TAB PO SCH (20:48)
[2018-11-29] MEDS: INSULIN ASPART 100 UNITS/ML 3 ML PEN SC SCH (20:49)
--- NOTE | 2018-11-29 20:50 | XRay Report ---
CERVICAL SPINE 3 VIEWS CLINICAL HISTORY: Cervicalgia. FINDINGS: AP, lateral, and odontoid views of the cervical spine are obtained. No prior studies are av ailable for comparison at the time of dictation. The skeletal structures are osteopenic. There is no radiographic evidence of fracture or subluxation. The odontoid process and lateral masses appear inta ct on the open mouth view. The spinolaminar line is preserved. Vertebral body height and alignment ar e maintained. The C7 vertebral body is incompletely visualized. Small anterior osteophytes are seen t hroughout. The spinous processes appear intact. Productive degenerative change is noted the atlantode ntal articulation. Multilevel facet arthropathy is noted on the AP view. The intervertebral disc spac es are normal. The prevertebral soft tissues are within normal limits. Visualized apical lung parench yma appears clear. Pacemaker leads are seen in the right axilla. IMPRESSION: 1. No acute bony abnormality is seen involving the cervical spine noting suboptimal visualization of C7. 2. Osteopenia and mild spondylotic change as above. Electronically signed by: Vega Costello M.D. 11/29/2018 8:49 PM
[2018-11-29] MEDS ORDERED: NON-FORMULARY MEDICATION (Iron,Carbonyl-Vitamin C [Vitron-C] 1 TAB) PO SCH (21:00)
[2018-11-30] MEDS: OXYCODONE HCL IR 5 MG TAB (IMMEDIATE RELEASE) PO PRN ×4 (05:31→23:39)
[2018-11-30 06:46] LABS: Hematocrit (blood only) 39.2 % (42-52); Hemoglobin 12.8 g/dL (14.0-18.0); Mean Corpuscular Hgb Conc 32.7 g/dL (32-36); Mean Corpuscular Volume 89.9 fL (80-100); Mean Platelet Volume 9.6 fL (7.4-10.4); Platelet Count 227 K/uL (130-400); RDW Coefficient of Variation 14.3 % (11.5-14.5); RDW Standard Deviation 47.5 fL (36.4-46.3); Red Blood Count 4.36 M/uL (4.7-6.1); White Blood Count 6.59 K/uL (4.8-10.8)
[2018-11-30 06:57] LABS: INR 2.1 (0.9-1.1); Prothrombin Time 20.4 Seconds (9.0-12.0)
[2018-11-30 07:21] LABS: BUN Creatinine Ratio 16.9 (10-20); Calcium 8.9 mg/dl (8.5-10.1); Creatinine Clr Calc Pharmacy 51.5 ml/min; Est GFR (African American) 44.5; Est GFR (Non-African American) 38.4; Potassium 4.6 mmol/L (3.5-5.1)
[2018-11-30] MEDS: ASPIRIN 81 MG ECTAB PO SCH (07:57)
[2018-11-30] MEDS: ISOSORBIDE MONO EXTENDED REL 30 MG TABCR PO SCH (07:57)
[2018-11-30] MEDS: PANTOprazole 40 MG TAB PO SCH ×2 (07:58→20:16)
[2018-11-30] MEDS: MAGNESIUM OXIDE 400 MG TAB PO SCH ×2 (07:58→20:17)
[2018-11-30] MEDS: ATORVASTATIN 40 MG TAB PO SCH (07:58)
[2018-11-30] MEDS: FUROSEMIDE 80 MG TAB PO SCH (07:59)
[2018-11-30] MEDS: INSULIN ASPART 100 UNITS/ML 3 ML PEN SC SCH ×4 (08:04→20:18)
--- NOTE | 2018-11-30 10:50 | Hospitalist Progress Note ---
Date of Service November 30, 2018 Assessment & Plan (1) Altered mental status: -EMS was called to patient's home for lethargy/altered mental status. When EMS arrived, patient was lethargic however arousable and was complaining of shoulder pain. He was subsequently given IV fentanyl for the pain. There was also reported possible left sided facial droop with a weak semiconductor assembler on the left. EMS noted that the facial droop and weakness resolved. Patient was given Narcan after EMS called for [facility]. -History remains limited from the patient -For now, will hold all potentially sedating medications (baclofen, bupropion, buspirone, escitalopram, gabapentin, oxycodone, trazodone, zolpidem); noted that baclofen was recently started -Head CT negative -Unable to obtain brain MRI to evaluate for CVA -Neurochecks -Neuro on case, saw PT c Dr Lyman today (2) Neck pain: -Check cervical spine x-ray (3) DM type 2 (diabetes mellitus, type 2): -Hgb A1c 7.1 10/2018 -Discussed with patient's pharmacy, he has not had his glipizide filled in over 1 year -SSI (4) CKD (chronic kidney disease), stage IV: - baseline creat runs in the low 2s - continue to monitor, avoid nephrotoxic agents when able (5) CAD (coronary artery disease): -Appears stable, patient does report chest pain however this seems to be musculoskeletal in nature -Troponin negative -EKG unchanged from EKG 02/2018 -Continue aspirin, statin, nitrate (6) Sinus node dysfunction: Tele (7) Pacemaker: -Pacer interrogation to evaluate for arrhythmia due to episode of altered mental status (8) Personal history of DVT (deep vein thrombosis): Therapeutic on Warfarin (9) Pulmonary embolism: -Anticoagulated on Coumadin, INR 2.1 -Continue Coumadin, dose according to INR (10) Hypertension: -BP controlled, continue isosorbide (11) Diastolic CHF, chronic: -Appears euvolemic, continue home dose of furosemide (12) GERD (gastroesophageal reflux disease): -Continue H2 evelyn and PPI (13) Depression: -Holding medications as above, resume Lexapro (14) Anemia due to chronic kidney disease: -Hgb at baseline (15) Right groin wound: Wound eval and treat (16) DVT prophylaxis: -Anticoagulated on Coumadin with a therapeutic INR ROS-No Headache, No Visual Changes, No Nausea, No Vomiting, No Fever, No Chills, No Neck Pain or Stiffness, No Chest Pain, No Palpitations, No SOB, No MONTALVO, No Cough, No Sputum, No Wheezing, No Abdominal Pain, No Diarrhea, No Hematemesis, No Hemoptysis, No Unexpected Weight Loss, No Flank pain, No Melena, No Hematochezia, No Frequency, No Urgency, No Burning, No Hematuria, No Rashes, No Diaphoresis. Appetite is Normal, c/o Back pain and R Shoulder Pain Physical Exam Gen-AAO x 3, NAD, Afebrile Head-NCAT, EOMI, PERRLA, Anicteric Sclera, No Posterior Pharyngeal Erythema Neck-Supple, No JVD, No Thyromegaly, No Masses, No LAD, No Bruits Lungs-Clear to Auscultation Bilaterally, No Rales, No Rhonchi, No Wheezing, No Crepitus Chest-No S4, +S1, +S2, No S3, No Murmurs, No Rubs, No Gallops, No Ectopy Abdomen-Soft, Bowel Sounds Present, Non Tender, Non Distended, No Hepatomegaly, No Splenomegaly, No Palpable Masses, No Rebound, No Rigidity, No Guarding Musculoskeletal-Full Range of Motion Bilaterally, No CVAT Extremities-No Cyanosis, No Clubbing, No Edema, R Groin seeping wound Nuero-Cranial Nerves II-XII grossly intact, Motor WNL, DTRs WNL, Strength WNL, Non Focal Psych-Normal Mood Results & Data Vital Signs (Past 12 Hours) Vital Signs Temp Pulse Resp BP Pulse Ox 11/30/18 07:35 37.2 C 61 19 146/88 H 97 11/30/18 03:48 36.3 C L 60 18 131/84 96 11/29/18 23:59 36.3 C L 60 16 145/87 H 95 Current Diagnoses Anemia in chronic kidney disease (11/29/18) Type 2 diabetes mellitus without complications (11/29/18) Major depressive disorder, single episode, unspecified (11/29/18) Essential (primary) hypertension (11/29/18) Atherosclerotic heart disease of [place] coronary artery without angina pectoris (11/29/18) Other pulmonary embolism without acute cor pulmonale (11/29/18) Sick sinus syndrome (11/29/18) Chronic diastolic (congestive) heart failure (11/29/18) Gastro-esophageal reflux disease without esophagitis (11/29/18) Cervicalgia (11/29/18) Chronic kidney disease, stage 4 (severe) (11/29/18) Chronic kidney disease, unspecified (11/29/18) Altered mental status, unspecified (11/29/18) Personal history of other venous thrombosis and embolism (11/29/18) Presence of cardiac pacemaker (11/29/18) Allergies Calcium Channel Blockers Adverse Reaction (Mild, Uncoded 11/29/18 14:05) COUGH Height/Weight/Isolation Height 5 ft 7 in Weight 122.9 kg Chemistry 11/29/18 11/30/18 12:45 06:20 Sodium 141 142 Potassium 4.8 4.6 Chloride 106 105 Carbon Dioxide 30 35 H Anion Gap 5.0 3.0 BUN 31 H 31 H Creatinine 1.78 H 1.82 H Glucose 198 H 169 H Urinalysis 11/29/18 14:35 Urine Color Yellow Urine Appearance Clear Urine pH 5.0 Ur Specific [place] 1.010 Urine Protein Negative Urine Glucose (UA) Negative Urine Ketones Negative Urine Blood Negative Urine Nitrite Negative Urine Bilirubin Negative
--- NOTE | 2018-11-30 11:18 | Consultation Report ---
DATE OF CONSULTATION: 11/30/2018 REASON FOR CONSULTATION: Confusional episode. HISTORY OF PRESENT ILLNESS: The patient is a 63-year-old with multiple medical comorbidities including diabetes, kidney disease, coronary artery disease, sinus node dysfunction with permanent pacemaker and chronic anticoagulation. On this background, he has been in his general state of health. About a week ago, he fell and he developed some right shoulder, neck and back pain. He was seen at the [facility]. He indicates that they did not give him any narcotic pain medications, but it is possible that they prescribed baclofen and gabapentin. The baclofen is clearly new, unclear if gabapentin is new. The patient chronically takes oxycodone, and in the month of October, he indicates that he goes through 110 per month which is to last him 30 days. He in the month of October ran out of his oxycodone, so has not been taking that. I do not know of what period of time he consumed 110 oxycodone. On this background, the patient lives with his son and indicates that he was otherwise as described. He said he went out on his front porch and felt somewhat delirious. He was nauseated, vomited, leaned on the railing, could not find his dog, called for his son. His son encouraged him to go back to the bedroom. The patient indicates he fell onto the bed and briefly lost consciousness. While on the bed, he was awake, but could not speak or move for a period of time. He may have had a mild headache. He had some neck pain. He was not injured. When the watchmaker apprentice arrived, they gave him narcotic pain medication for shoulder pain and then given Narcan. It was also noted that he had a facial droop on the left and weak driving instructor on the left. These have resolved. The patient has no prior history of transient ischemic attack or stroke. PAST MEDICAL HISTORY: As above. Additionally, depression, Marilou's gangrene of the scrotum, reflux, congestive heart failure, nonsustained ventricular tachycardia, coronary artery disease with multiple procedures, diabetes, ankle fracture. SURGICAL HISTORY: Umbilical hernia, incisional hernia, cholecystectomy, orchiectomy, IVC filter, gastric bypass. FAMILY HISTORY: Diabetes, heart disease. SOCIAL HISTORY: The patient is disabled, does not smoke, occasionally drinks alcohol. REVIEW OF SYSTEMS: No fevers, chills, sweats. MEDICATIONS: Aspirin, atorvastatin, baclofen, bupropion, BuSpar, dicyclomine, Celexa, furosemide, gabapentin 300 q. 12, glipizide, iron, isosorbide, magnesium, meclizine, oxycodone, omeprazole, ranitidine, trazodone, warfarin, and zolpidem. LABORATORY DATA: White count 8.3, H and H 12.9/37, platelet count 220. INR 2.1. Sodium 141, potassium 4.6, BUN/creatinine 31/1.78. Glucose point of care 183, calcium 9.0. Transaminases normal. Urinalysis negative. Tox screen positive for MDMA. CT of the head, no acute intracranial findings. Chest x-ray, no acute process. PHYSICAL EXAMINATION: CURRENT VITAL SIGNS: 146/88, 61, 19, 37.2, 97% sat. GENERAL: The patient is oriented to person and place. He thinks that it is October. No right/left confusion. No aphasia. No carotid bruits. HEART: No heart murmurs. Heart is regular rate and rhythm. NEUROLOGIC: There are normal extraocular motility pearson. There is a mild flattening of the left nasolabial fold. Speech is nondysarthric, although he is edentulous. There is symmetric strength, no drift. Equal rapid alternating movements. Symmetric reflexes. Diminished lower extremity reflexes. The distal sensory loss to temperature. [id number]-pd-[id number] and gsck-pn-[id number] are normal. His gait was not tested. IMPRESSION: This is a patient with multiple medical comorbidities who has had a recent fall with pain and multiple new medications. The differential of this episode of change in mental status includes polypharmacy, possible medication withdrawal. Transient neurologic symptoms were witnessed raising the question of a transient ischemic attack, although in orders for the patient to lose consciousness, this would have to have been a posterior circulation event and his symptoms are not consistent with the same. Seizure is within the differential, I do not know if he was observed during this entire period of time. The patient cannot have MRI, CTA or MRA. PLAN: 1. Carotid ultrasound, echo, risk factor modification 2. EEG. 3. Consider simplifying the patient's medications including considering discontinuing the trazodone or zolpidem. Hold gabapentin, if indeed it is a new medication for this patient. We will follow with you. ANGEL
--- NOTE | 2018-11-30 11:36 | CT Scan Report ---
CT OF THE CERVICAL SPINE WITHOUT CONTRAST CLINICAL HISTORY: fall, intractable neck pain COMPARISON STUDY: Cervical spine radiographs November 29, 2018. TECHNIQUE: Helical axial images of the cervical spine were obtained without IV contrast. Sagittal a nd coronal reconstructions were viewed. Automated exposure control was utilized for the study. A do se lowering technique was utilized adhering to the principles of ALARA. FINDINGS: Alignment of the cervical spine is anatomic. Vertebral body heights are maintained. Cranioc ervical junction is intact. Facet joints are intact. There is moderate multilevel facet arthrosis and moderate multilevel degenerative disc disease. Suspected central disc protrusions at C3-C4 and C5-C6 are noted. Central canal and neural foramen are suboptimally assessed by CT however there are suspec abilio moderate central canal stenosis at C3-C4. There is no prevertebral edema. There is no pneumothora x within visualized portions of the lung apices. IMPRESSION: 1. No acute cervical spinal fracture or subluxation. 2. Moderate multilevel degenerative disc disease and facet arthrosis within the cervical spine. Subop timal evaluation of the central canal and neural foramen given CT technique however suspected disc pr otrusions at C3-C4 and C5-C6 with at least moderate central canal stenosis at C3-C4. Electronically signed by: Aftab Sheets M.D. 11/30/2018 11:34 AM
--- NOTE | 2018-11-30 13:23 | Ultrasound Report ---
CAROTID ARTERY ULTRASOUND CLINICAL HISTORY: tia, l facial droop COMPARISON STUDY: Carotid ultrasound April 06, 2012. TECHNIQUE: Real-time, grayscale, and color Doppler sonography of the carotid and vertebral arteries w as performed. Images were viewed in the transverse and longitudinal planes. FINDINGS: There is mild atherosclerotic plaque present. Velocity measurements are listed below. COMMON CAROTID PEAK SYSTOLIC VELOCITY (CM/S): RIGHT 70 LEFT 77 ICA PEAK SYSTOLIC VELOCITY (CM/S): RIGHT 49 LEFT 54 Systolic ratios between the internal to common carotid arteries are normal. Antegrade flow is seen in the vertebral arteries. The external carotid arteries are patent. IMPRESSION: No evidence of a hemodynamically significant stenosis. Electronically signed by: Aftab Sheets M.D. 11/30/2018 1:22 PM
[2018-11-30] MEDS ORDERED: PERFLUTREN LIPID MICROSPHERE (DEFINITY) IV ONE (15:04)
[2018-11-30] MEDS ORDERED: WARFARIN SOD 5 MG TAB PO SCH (16:00)
[2018-11-30] MEDS ORDERED: FUROSEMIDE 80 MG TAB PO SCH (16:30)
[2018-11-30] MEDS: ACETAMINOPHEN 325 MG TAB PO PRN (23:39)
[2018-12-01] MEDS: OXYCODONE HCL IR 5 MG TAB (IMMEDIATE RELEASE) PO PRN ×2 (06:45→10:56)
[2018-12-01 07:48] LABS: Hematocrit (blood only) 38.5 % (42-52); Hemoglobin 13.1 g/dL (14.0-18.0); Mean Corpuscular Volume 88.9 fL (80-100); Mean Platelet Volume 9.3 fL (7.4-10.4); Platelet Count 219 K/uL (130-400); RDW Standard Deviation 45.7 fL (36.4-46.3); Red Blood Count 4.33 M/uL (4.7-6.1); White Blood Count 7.51 K/uL (4.8-10.8)
[2018-12-01 07:57] LABS: INR 1.5 (0.9-1.1); Prothrombin Time 14.8 Seconds (9.0-12.0)
[2018-12-01] MEDS: ATORVASTATIN 40 MG TAB PO SCH (08:13)
[2018-12-01] MEDS: MAGNESIUM OXIDE 400 MG TAB PO SCH (08:13)
[2018-12-01] MEDS: PANTOprazole 40 MG TAB PO SCH (08:14)
[2018-12-01] MEDS: ASPIRIN 81 MG ECTAB PO SCH (08:14)
[2018-12-01] MEDS: ISOSORBIDE MONO EXTENDED REL 30 MG TABCR PO SCH (08:14)
[2018-12-01] MEDS: INSULIN ASPART 100 UNITS/ML 3 ML PEN SC SCH ×2 (08:17→11:55)
[2018-12-01] MEDS: FUROSEMIDE 80 MG TAB PO SCH (08:18)
[2018-12-01 08:21] LABS: BUN Creatinine Ratio 17.3 (10-20); Calcium 8.8 mg/dl (8.5-10.1); Creatinine Clr Calc Pharmacy 45.8 ml/min; Est GFR (African American) 38.8; Est GFR (Non-African American) 33.4; Potassium 4.7 mmol/L (3.5-5.1)
--- NOTE | 2018-12-01 11:38 | Discharge Summary ---
Date of Service December 01, 2018 Admission HPI Per Admitting Provider 63-year-old male who presents the ED with altered mental status. History is very limited from the patient, there is no family present in the room, and family/friends were unable to be reached by phone. History is obtained from ED documentation and patient's outpatient chart. EMS was called to patient's home for lethargy/altered mental status. Patient reports he lives with his son however he is unsure if he was the one that called EMS. When EMS arrived, patient was lethargic however arousable and was complaining of shoulder pain. He was subsequently given IV fentanyl for the pain. There was also reported possible left sided facial droop with a weak pyrotechnician on the left. They note that the facial droop and weakness have since resolved. Patient was given Narcan after calling for [facility]. After review of outpatient chart, patient was recently given baclofen for right shoulder pain. It is unknown if patient has been taking medication as prescribed. When patient was asked questions during exam, he frequently responded with " my neck hurts", "my shoulder hurts", " I just do not feel well", " I do not remember". In the ED, CT is negative for acute findings, patient is hemodynamically stable, labs are unremarkable. Admission Exam Per Admitting Provider Constitutional WD/WN, vitals as above Eyes: PERRL, conjunctivae normal, anicteric sclerae ENMT: external ear and nose normal, oropharynx normal Mouth: + edentulous Respiratory: normal respiratory effort, lungs clear to auscultation Cardiovascular: Rate/Rhythm: regular rate and regular rhythm Vessels: normal peripheral pulses Extremities: + edema (+1-2 BLE, L > R) Gastrointestinal (Abdomen): normal bowel sounds, soft, nontender, no hepatosplenomegaly Musculoskeletal: Extremities: + upper extremity abnormal to inspection (Unable to lift arms secondary to shoulder pain) Bilateral and + lower leg abnormality (Weakness, strength 3-4/5 BLLE) Bilateral; no cyanosis and no clubbing Skin: no rashes, warm and dry Chronic venous changes BLE Neurologic: PERRL, EOMI, accommodation nl, no face palsy, no dysarthria moves all extremities, awake and + confused Speech / Cognition: normal speech Does not follow commands well to adequately perform a neuro exam Psychiatric: Orientation: alert, oriented to person and oriented to place; + not oriented to time Affect: + tearful affect Insight: + limited insight Principal Diagnosis AMS Polypharmacy Right Groin Wound Back and Neck Pain ACD DM II CKD CAD Discharge Exam ROS-No Headache, No Visual Changes, No Nausea, No Vomiting, No Fever, No Chills, No Neck Pain or Stiffness, No Chest Pain, No Palpitations, No SOB, No MONTALVO, No Cough, No Sputum, No Wheezing, No Abdominal Pain, No Diarrhea, No Hematemesis, No Hemoptysis, No Unexpected Weight Loss, No Flank pain, No Melena, No Hematochezia, No Frequency, No Urgency, No Burning, No Hematuria, No Rashes, No Diaphoresis. Appetite is Normal, c/o Back pain and R Shoulder Pain Physical Exam Gen-AAO x 3, NAD, Afebrile Head-NCAT, EOMI, PERRLA, Anicteric Sclera, No Posterior Pharyngeal Erythema Neck-Supple, No JVD, No Thyromegaly, No Masses, No LAD, No Bruits Lungs-Clear to Auscultation Bilaterally, No Rales, No Rhonchi, No Wheezing, No Crepitus Chest-No S4, +S1, +S2, No S3, No Murmurs, No Rubs, No Gallops, No Ectopy Abdomen-Soft, Bowel Sounds Present, Non Tender, Non Distended, No Hepatomegaly, No Splenomegaly, No Palpable Masses, No Rebound, No Rigidity, No Guarding Musculoskeletal-Full Range of Motion Bilaterally, No CVAT Extremities-No Cyanosis, No Clubbing, No Edema, R Groin seeping wound Nuero-Cranial Nerves II-XII grossly intact, Motor WNL, DTRs WNL, Strength WNL, Non Focal Psych-Normal Mood Discharge Data Allergies Allergy/AdvReac Type Severity Reaction Status Date / Time Calcium Channel Blockers AdvReac Mild COUGH Uncoded 11/29/18 14:05 Consultations 11/29/18 15:23 ED Decision to Admit Stat 11/29/18 18:36 Consult Case Management - Discharge Planning Routine Consult Neurology Routine Ordered Studies 11/29/18 12:40 CT head/brain wo con Stat 11/30/18 10:30 US carotid doppler BI Routine 11/30/18 10:35 CT cervical spine wo con Routine Current Diagnoses Anemia in chronic kidney disease (11/29/18) Type 2 diabetes mellitus without complications (11/29/18) Major depressive disorder, single episode, unspecified (11/29/18) Essential (primary) hypertension (11/29/18) Atherosclerotic heart disease of [place] coronary artery without angina pectoris (11/29/18) Other pulmonary embolism without acute cor pulmonale (11/29/18) Sick sinus syndrome (11/29/18) Chronic diastolic (congestive) heart failure (11/29/18) Gastro-esophageal reflux disease without esophagitis (11/29/18) Cervicalgia (11/29/18) Chronic kidney disease, stage 4 (severe) (11/29/18) Chronic kidney disease, unspecified (11/29/18) Altered mental status, unspecified (11/29/18) Unspecified open wound of abdominal wall, unspecified quadrant without penetration into peritoneal cavity, initial encounter (11/29/18) Personal history of other venous thrombosis and embolism (11/29/18) Presence of cardiac pacemaker (11/29/18) Allergies Calcium Channel Blockers Adverse Reaction (Mild, Uncoded 11/29/18 14:05) COUGH Height/Weight/Isolation Height 5 ft 7 in Weight 122.2 kg Chemistry 11/29/18 11/30/18 12/01/18 12:45 06:20 07:35 Sodium 141 142 138 Potassium 4.8 4.6 4.7 Chloride 106 105 100 Carbon Dioxide 30 35 H 34 H Anion Gap 5.0 3.0 4.0 BUN 31 H 31 H 35 H Creatinine 1.78 H 1.82 H 2.04 H Glucose 198 H 169 H 156 H Urinalysis 11/29/18 14:35 Urine Color Yellow Urine Appearance Clear Urine pH 5.0 Ur Specific [place] 1.010 Urine Protein Negative Urine Glucose (UA) Negative Urine Ketones Negative Urine Blood Negative Urine Nitrite Negative Urine Bilirubin Negative Hospital Course (1) Altered mental status: -EMS was called to patient's home for lethargy/altered mental status. When EMS arrived, patient was lethargic however arousable and was complaining of shoulder pain. He was subsequently given IV fentanyl for the pain. There was also reported possible left sided facial droop with a weak pyrotechnician on the left. EMS noted that the facial droop and weakness resolved. Patient was given Narcan after EMS called for [facility]. -Feeling a lot better, will stop Neurontin and Baclofen, Refuses to stop Combo of Trazadone and Ambien for sleep -Head CT negative -Unable to obtain brain MRI to evaluate for CVA -Neuro saw patient (2) Neck pain: -Chronic (3) DM type 2 (diabetes mellitus, type 2): -Hgb A1c 7.1 10/2018 -Discussed with patient's pharmacy, he has not had his glipizide filled in over 1 year (4) CKD (chronic kidney disease), stage IV: (5) CAD (coronary artery disease): -Appears stable, patient does report chest pain however this seems to be musculoskeletal in nature -Troponin negative -EKG unchanged from EKG 02/2018 -Continue aspirin, statin, nitrate (6) Sinus node dysfunction: Tele (7) Pacemaker: -OK on Monitor (8) Personal history of DVT (deep vein thrombosis): Therapeutic on Warfarin (9) Pulmonary embolism: -Anticoagulated on Coumadin, INR 2.1 -Continue Coumadin, dose according to INR (10) Hypertension: -BP controlled, continue isosorbide (11) Diastolic CHF, chronic: -Appears euvolemic, continue home dose of furosemide (12) GERD (gastroesophageal reflux disease): -Continue H2 evelyn and PPI (13) Depression: -Holding medications as above, resume Lexapro (14) Anemia due to chronic kidney disease: -Hgb at baseline (15) Right groin wound: Wound eval and treat (16) DVT prophylaxis: -Anticoagulated on Coumadin with a therapeutic INR ROS-No Headache, No Visual Changes, No Nausea, No Vomiting, No Fever, No Chills, No Neck Pain or Stiffness, No Chest Pain, No Palpitations, No SOB, No MONTALVO, No Cough, No Sputum, No Wheezing, No Abdominal Pain, No Diarrhea, No Hematemesis, No Hemoptysis, No Unexpected Weight Loss, No Flank pain, No Melena, No Hematochezia, No Frequency, No Urgency, No Burning, No Hematuria, No Rashes, No Diaphoresis. Appetite is Normal, c/o Back pain and R Shoulder Pain Physical Exam Gen-AAO x 3, NAD, Afebrile Head-NCAT, EOMI, PERRLA, Anicteric Sclera, No Posterior Pharyngeal Erythema Neck-Supple, No JVD, No Thyromegaly, No Masses, No LAD, No Bruits Lungs-Clear to Auscultation Bilaterally, No Rales, No Rhonchi, No Wheezing, No Crepitus Chest-No S4, +S1, +S2, No S3, No Murmurs, No Rubs, No Gallops, No Ectopy Abdomen-Soft, Bowel Sounds Present, Non Tender, Non Distended, No Hepatomegaly, No Splenomegaly, No Palpable Masses, No Rebound, No Rigidity, No Guarding Musculoskeletal-Full Range of Motion Bilaterally, No CVAT Extremities-No Cyanosis, No Clubbing, No Edema, R Groin seeping wound Nuero-Cranial Nerves II-XII grossly intact, Motor WNL, DTRs WNL, Strength WNL, Non Focal Psych-Normal Mood Total Time Total Time Spent Total Time Spent (In Minutes): 45 mins Total Time Includes: Examination of the Patient, Discharge Planning, Medication Reconciliation and Communication With Other Providers Discharge Plan Discharge Items Patient Disposition: Home - Self-Care Reason For Visit: ALTERED MENTAL STATUS Discharge Diagnosis: AMS Polypharmacy Right Groin Wound Back and Neck Pain ACD DM II CKD CAD Condition: Good Discharge Goals: Decrease discomfort and Improve disease control Activity: Resume your previous activity Lifting: Gradually increase as tolerated Bathing: No limitations Sexual Activity: When tolerated Exercise/Sports: Gradually increase as tolerated Driving/Machine Use: No limitations Driving/Machine Use Comment: Caution driving while taking your meds Weightbearing: Left weightbearing and Right weightbearing Non-emergency contact: Primary Care Provider Call non-emergency contact if: you have any medication questions and your symptoms worsen Follow-up/Referrals: Barron Nguyen DO [Primary Care Provider] - Diet: Carb Consistent or DM2 and Heart Healthy Addtl Provider Instructions: He has R groin wound that needs watching Prescriptions: New acetaminophen [Mapap (acetaminophen)] 325 mg Tablet 650 mg PO Q4H PRN (Reason: fever or pain) Qty: 60 RF: 0 Continued furosemide 40 mg tablet 120 mg PO DAILY RF: 0 trazodone 100 mg tablet 200 mg PO HS RF: 0 meclizine 25 mg tablet 25 mg PO TID PRN (Reason: Dizziness) RF: 0 glipizide 2.5 mg tablet extended release 24hr 2.5 mg PO DAILY RF: 0 ranitidine HCl 150 mg tablet 150 mg PO Q12 RF: 0 warfarin 5 mg tablet 5 mg PO DAILY RF: 0 omeprazole 20 mg capsule,delayed release(DR/EC) 20 mg PO BID RF: 0 zolpidem 5 mg tablet 5 mg PO HS RF: 0 buspirone 15 mg tablet 15 mg PO BID RF: 0 escitalopram oxalate 10 mg tablet 10 mg PO QAM RF: 0 bupropion HCl 300 mg tablet extended release 24 hr 300 mg PO QAM RF: 0 atorvastatin 80 mg Tablet 80 mg PO DAILY RF: 0 isosorbide mononitrate 30 mg Tablet Extended Release 24 Hr 30 mg PO DAILY RF: 0 furosemide 40 mg tablet 80 mg PO QDD RF: 0 aspirin 81 mg Tablet,Delayed Release (Dr/Ec) 81 mg PO DAILY RF: 0 magnesium oxide 400 mg (241.3 mg magnesium) Tablet 400 mg PO BID RF: 0 oxycodone 10 mg tablet 10 mg PO Q6H PRN (Reason: Pain) RF: 0 Vitron-C 65 mg iron- 125 mg Tablet,Delayed Release (Dr/Ec) 1 tab PO BID RF: 0 Discontinued dicyclomine 20 mg tablet 20 mg PO Q6H PRN (Reason: Cramps) RF: 0 baclofen 10 mg tablet 10 mg PO Q8H PRN (Reason: Pain) RF: 0 gabapentin 300 mg capsule 300 mg PO Q12 RF: 0 Stand-Alone Forms: [facility], Opioid Pain Management Discharge Orders: Discharge Order (Routine); Ordered 12/01/18 Ordered By: Tolu Correa Admission Data Admit Date/Time: 11/29/18 16:06 Attending Provider: Tolu Correa Admit Provider: Traci Forrest Primary Care Provider: Barron Nguyen V. Other Providers: Traci Forrest ; Lesly Olson Service: Telemetry
--- NOTE | 2018-12-01 14:25 | Progress Note ---
DATE: 12/01/2018 I am seeing Mr. Giron in followup of some confusion. I spoke to his son on the phone. Apparently, the confusion came on gradually over the night and was not a sudden onset of episode. No seizure activity had been noted. His CT of the head was noncontributory. His echo was limited due to body habitus, but appears unremarkable. A carotid duplex was negative and CT of the cervical spine showed degenerative changes but no fracture. IMPRESSION: 1. Confusion, likely related to polypharmacy. We will sign off. 2. Cervicogenic degenerative disc disease. The patient should follow up with primary care. We will attempt to minimize polypharmacy.
--- NOTE | 2018-12-01 15:10 | Procedure Note ---
EEG Procedure Note Date of Service December 01, 2018 Start / End Times Start Time: 15:22 End Time: 15:[address] Lesly Olson History A 63 year old man admitted for encephalopathy. EEG performed for evaluation of epileptiform activity. Home Medication List Home Medications Medication Instructions Recorded Confirmed Type Vitron-C 1 tab PO BID 11/29/18 11/29/18 History aspirin 81 mg PO DAILY 11/29/18 11/29/18 History atorvastatin 80 mg PO DAILY 11/29/18 11/29/18 History bupropion HCl 300 mg PO QAM 11/29/18 11/29/18 History buspirone 15 mg PO BID 11/29/18 11/29/18 History escitalopram oxalate 10 mg PO QAM 11/29/18 11/29/18 History furosemide 80 mg PO QDD 11/29/18 11/29/18 History furosemide 120 mg PO DAILY 11/29/18 11/29/18 History glipizide 2.5 mg PO DAILY 11/29/18 11/29/18 History isosorbide mononitrate 30 mg PO DAILY 11/29/18 11/29/18 History magnesium oxide 400 mg PO BID 11/29/18 11/29/18 History meclizine 25 mg PO TID PRN 11/29/18 11/29/18 History omeprazole 20 mg PO BID 11/29/18 11/29/18 History oxycodone 10 mg PO Q6H PRN 11/29/18 11/29/18 History ranitidine HCl 150 mg PO Q12 11/29/18 11/29/18 History trazodone 200 mg PO HS 11/29/18 11/29/18 History warfarin 5 mg PO DAILY 11/29/18 11/29/18 History zolpidem 5 mg PO HS 11/29/18 11/29/18 History acetaminophen [Mapap 650 mg PO Q4H PRN #60 tab 12/01/18 Rx (acetaminophen)] Inpatient Medication List Acetaminophen (Tylenol) 650 mg PO Q4H PRN PRN Reason: Pain or Fever Stop: 12/29/18 18:35 Last Admin: 11/30/18 23:39 Dose: 650 mg Documented by: [id number] Admin: 11/29/18 18:54 Dose: 650 mg Documented by: [id number] Aspirin (Ecotrin Ectab) 81 mg PO DAILY [facility] Stop: 12/30/18 08:59 Last Admin: 12/01/18 08:14 Dose: 81 mg Documented by: [id number] Admin: 11/30/18 07:57 Dose: 81 mg Documented by: [id number] Atorvastatin Calcium (Lipitor) 80 mg PO DAILY [facility] Stop: 12/30/18 08:59 Last Admin: 12/01/18 08:13 Dose: 80 mg Documented by: [id number] Admin: 11/30/18 07:58 Dose: 80 mg Documented by: [id number] Furosemide (Lasix) 80 mg PO QDD [facility] Stop: 12/30/18 16:29 Last Admin: 11/30/18 17:28 Dose: 80 mg Documented by: [id number] Furosemide (Lasix) 120 mg PO DAILY [facility] Stop: 12/30/18 08:59 Last Admin: 12/01/18 08:18 Dose: 120 mg Documented by: [id number] Admin: 11/30/18 07:59 Dose: 120 mg Documented by: [id number] Insulin Aspart (Novolog Flexpen) 0 units SC ACHS [facility] Stop: 12/29/18 20:59 Last Admin: 12/01/18 11:55 Dose: 6 units Documented by: [id number] Cosigned by: [id number] Admin: 12/01/18 08:17 Dose: 3 units Documented by: [id number] Cosigned by: [id number] Admin: 11/30/18 20:18 Dose: 2 units Documented by: [id number] Cosigned by: [id number] Admin: 11/30/18 17:31 Dose: 3 units Documented by: [id number] Cosigned by: [id number] Admin: 11/30/18 12:32 Dose: 2 units Documented by: [id number] Cosigned by: [id number] Admin: 11/30/18 08:04 Dose: 5 units Documented by: [id number] Cosigned by: [id number] Admin: 11/29/18 20:49 Dose: Not Given Documented by: [id number] Cosigned by: [id number] Isosorbide Mononitrate (Imdur Extended Rel) 30 mg PO DAILY [facility] Stop: 12/30/18 08:59 Last Admin: 12/01/18 08:14 Dose: 30 mg Documented by: [id number] Admin: 11/30/18 07:57 Dose: 30 mg Documented by: [id number] Magnesium Oxide (Mag-Ox) 400 mg PO BID [facility] Stop: 12/29/18 20:59 Last Admin: 12/01/18 08:13 Dose: 400 mg Documented by: [id number] Admin: 11/30/18 20:17 Dose: 400 mg Documented by: [id number] Admin: 11/30/18 07:58 Dose: 400 mg Documented by: [id number] Admin: 11/29/18 20:47 Dose: 400 mg Documented by: [id number] Oxycodone HCl (Roxicodone Immediate Rel) 5 - 10 mg PO Q6H PRN PRN Reason: Pain Stop: 12/13/18 21:32 Last Admin: 12/01/18 10:56 Dose: 10 mg Documented by: [id number] Admin: 12/01/18 06:45 Dose: 10 mg Documented by: [id number] Admin: 11/30/18 23:39 Dose: 10 mg Documented by: [id number] Admin: 11/30/18 17:27 Dose: 10 mg Documented by: [id number] Admin: 11/30/18 11:32 Dose: 10 mg Documented by: [id number] Admin: 11/30/18 05:31 Dose: 10 mg Documented by: [id number] Pantoprazole Sodium (Protonix) 40 mg PO BID [facility] Stop: 12/29/18 20:59 Last Admin: 12/01/18 08:14 Dose: 40 mg Documented by: [id number] Admin: 11/30/18 20:16 Dose: 40 mg Documented by: [id number] Admin: 11/30/18 07:58 Dose: 40 mg Documented by: [id number] Admin: 11/29/18 20:48 Dose: 40 mg Documented by: [id number] Ranitidine HCl (Zantac) 150 mg PO Q12 [facility] Stop: 12/29/18 20:59 Last Admin: 12/01/18 08:14 Dose: 150 mg Documented by: [id number] Admin: 11/30/18 20:16 Dose: 150 mg Documented by: [id number] Admin: 11/30/18 07:58 Dose: 150 mg Documented by: [id number] Admin: 11/29/18 20:48 Dose: 150 mg Documented by: [id number] Warfarin Sodium (Coumadin) 5 mg PO DAILY@1600 [facility] Stop: 12/30/18 15:59 Last Admin: 11/30/18 17:28 Dose: 5 mg Documented by: [id number] Discontinued Medications Sodium Chloride (Nss) 500 mls @ 999 mls/hr IV .Q31M [facility] Stop: 11/29/18 13:15 Last Infusion: 11/29/18 21:19 Dose: 0 mls/hr Documented by: [id number] Admin: 11/29/18 20:47 Dose: 999 mls/hr Documented by: [id number] Perflutren Lipid Microsphere (Definity) 2 ml IV ONCE ONE Stop: 11/30/18 15:05 Last Admin: 11/30/18 15:04 Dose: 2 ml Documented by: [id number] Description This is a 21 electrode EEG with a single channel dedicated to limited EKG. The electrodes were placed in accordance with the International 10-20 system. REPORT: At the onset of the EEG, the patient is drowsy. The background activity consists of 6-7 Hz, persistent, posteriorly dominant, moderate amplitude, symmetric and rhythmic activity that is reactive to eye opening. Anteriorly, it consists of a mixture of low voltage indeterminate activity and 15-25 Hz, persistent, low amplitude, symmetric and rhythmic activity. Stepwise intermittent photic stimulation does not induce any abnormalities. Drowsiness is characterized by low amplitude mixed frequency activity, roving eye movements, and decreased eye blinking and muscle artifact. IMPRESSION: This is an abnormal awake and drowsy EEG due to mild background slowing suggestive of a mild non specific encephalopathy. No epileptiform discharges are recorded.
== END 2018-12-01 14:20 | disposition home or self-care (01) | DRG 948 ==
LOC: 2S 16:06